=== PATIENT | female | born 1985 | race Caucasian/White ===

== ENCOUNTER 2025-05-07 08:46 | Outpatient (CLI) | payer OTHER | END 2025-05-07 08:47 | disposition home or self-care (01) | LOC: CSHSLEEP 08:46 | PROVIDERS: ATTEND Family Medicine | DX: G47.33 Obstructive sleep apnea (adult) (pediatric) (principal); R53.83 Other fatigue; R09.89 Other specified symptoms and signs involving the circulatory and respiratory systems; I10 Essential (primary) hypertension | CPT/HCPCS: 95811 ==

== ENCOUNTER 2025-05-11 14:05 | Outpatient (CLI) | payer OTHER | END 2025-05-11 14:06 | disposition home or self-care (01) | LOC: CSHMAMMO 14:05 | PROVIDERS: ATTEND Family Medicine | DX: N64.89 Other specified disorders of breast (principal) | CPT/HCPCS: G0279 ==